=== PATIENT | female | born 1965 | race Caucasian/White ===

== ENCOUNTER 2019-02-03 18:09 | Emergency (ER) | payer OTHER ==
[~2019-02-03] VITALS: Ht 152.4 cm; Wt 79.8 kg
[2019-02-03 18:13] VITALS: BP 141/72
[2019-02-04 00:35] VITALS: BP 132/60
== END 2019-02-04 00:35 | disposition home or self-care (01) ==
LOC: MED 18:09
DX: S69.82XA Other specified injuries of left wrist, hand and finger(s), initial encounter (principal); I10 Essential (primary) hypertension; E03.9 Hypothyroidism, unspecified; Z98.890 Other specified postprocedural states; X50.3XXA Overexertion from repetitive movements, initial encounter; Y93.89 Activity, other specified; Y92.89 Other specified places as the place of occurrence of the external cause; Y99.8 Other external cause status
CPT/HCPCS: 81002; 81025; 99283

== ENCOUNTER 2019-11-04 19:04 | Emergency (ER) | payer OTHER ==
[~2019-11-04] VITALS: Ht 149.9 cm; Wt 72.6 kg
[2019-11-04 19:06] VITALS: BP 143/90
[2019-11-04 20:17] LABS: BASOPHILS # (AUTO) 0.1 K/uL (0.00-0.22); BASOPHILS % (AUTO) 0.9 % (0.0-2.0); EOSINOPHILS % (AUTO) 0.5 % (0.0-4.0); HEMATOCRIT 41.5 % (36-48); HEMOGLOBIN 13.5 g/dL (12.0-16.0); LYMPHOCYTES # (AUTO) 2.6 K/uL (2.5-16.5); LYMPHOCYTES % (AUTO) 40.7 % (20.5-51.1); MEAN CORPUSCULAR HEMOGLOBIN 28 pg (27-31); MEAN CORPUSCULAR HGB CONC 32 g/dL (33-37); MEAN CORPUSCULAR VOLUME 85.1 fL (80-94); MONOCYTES # (AUTO) 0.5 K/uL (0.8-1.0); MONOCYTES % (AUTO) 7.6 % (1.7-9.3); NEUTROPHILS # (AUTO) 3.2 K/uL (1.8-7.7); NEUTROPHILS % (AUTO) 50.3 % (42.2-75.2); PLATELET COUNT (AUTO) 102 K/uL (140-450); RED BLOOD CELL COUNT(AUTO) 4.88 MIL/uL (4.20-5.40); RED CELL DISTRIBUTION WIDTH 14.3 % (11.6-13.7); WHITE BLOOD COUNT (AUTO) 6.3 K/uL (4.8-10.8)
[2019-11-04 20:45] LABS: ALBUMIN 3.9 g/dL (3.4-5.0); ANION GAP 9.1 (8-16); CARBON DIOXIDE 34.2 mmol/L (21-32); CREATININE 1.1 mg/dL (0.6-1.3); FREE T4 (FREE THYROXINE) 1.11 ng/dL (0.76-1.46); POTASSIUM 4.3 mmol/L (3.5-5.1); THYROID STIMULATING HORMONE 3.81 uIU/mL (0.34-3.74); TOTAL BILIRUBIN 0.3 mg/dL (0.0-1.0)
[2019-11-04] MEDS ORDERED: ALUMINUM HYD/MAG/SIMETHICONE 30 ML UDC PO ONE (20:45)
[2019-11-04] MEDS ORDERED: LIDOCAINE VISCOUS 2% 20 ML UDC PO ONE (20:45)
[2019-11-04] MEDS ORDERED: DICYCLOMINE HCL LIQUID 10 MG/5 ML UDC PO ONE (20:45)
[2019-11-04] MEDS ORDERED: PANTOPRAZOLE 40 MG INJ VIAL IVP ONE (20:45)
[2019-11-04] MEDS ORDERED: NACL 0.9% 500 ML IV ONE (20:45)
[2019-11-04] MEDS ORDERED: KETOROLAC 30 MG/ML VIAL IVP ONE (20:50)
[2019-11-04 23:16] VITALS: BP 143/90
== END 2019-11-04 23:19 | disposition home or self-care (01) ==
LOC: MED 19:04
DX: R07.89 Other chest pain (principal); I10 Essential (primary) hypertension; E03.9 Hypothyroidism, unspecified
CPT/HCPCS: 36415; 71045; 80053; 84439; 84443; 84484; 85025; 85610; 85730; 96374; 96375; 99285; C9113; J1885; J7030

== ENCOUNTER 2020-02-08 19:30 | Emergency (ER) | payer OTHER ==
[~2020-02-08] VITALS: Ht 149.9 cm; Wt 73.5 kg
[2020-02-08 19:41] VITALS: BP 147/84
--- NOTE | 2020-02-08 19:50 | NUR ---
PT AMBULATORY TO ROOM 4
--- NOTE | 2020-02-08 20:05 | NUR ---
LAB AT BEDSIDE.
--- NOTE | 2020-02-08 20:06 | NUR ---
54 YO F BIB SELF FOR C/C OF ABNOMAL EKG AT [facility] TODAY. PER PT SHE HAS BEEN EXPERIENCING CHEST PAIN INTERMITTENTLY FOR 2 MONTHS THAT SOMETIMES RADIATES TO LEFT JAW AND LEFT ARM. PT STATES SHE HAS ALSO BEEN EXPERIENCING PALPITATIONS THAT HAVE BEEN TREATED WITH ADDING RX OF HTN MEDS TO HER REGIMEN. PER PT SHE HAS BEEN TOLD HER CP WAS ANXIETY RELATED IN PAST VISITS. PT DENIES BEING IN ANY PAIN AT THIS TIME. S1S2 HEARD. LUNG SOUNDS CLEAR THROUGHOUT. PERIPHERAL PULSES EQUAL AND REG, NO EDEMA NOTED. CAP REFILL <3. 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 BED LOCKED AND IN LOWEST POSITION. [facility] MED HX: HTN, HYPOTHYROID RX: METOPROLOL, LISINOPRIL, LEVOTHYROXINE
[2020-02-08 21:03] LABS: ALBUMIN 3.8 g/dL (3.4-5.0); CARBON DIOXIDE 33.1 mmol/L (21-32); CREATININE 1.1 mg/dL (0.6-1.3); POTASSIUM 4.1 mmol/L (3.5-5.1); TOTAL BILIRUBIN 0.2 mg/dL (0.0-1.0)
--- NOTE | 2020-02-08 21:13 | NUR ---
Dr. Durham examining patient.
[2020-02-08 21:15] LABS: FREE T4 (FREE THYROXINE) 0.91 ng/dL (0.76-1.46); THYROID STIMULATING HORMONE 5.23 uIU/mL (0.34-3.74)
[2020-02-08 21:26] LABS: BASOPHILS # (AUTO) 0.1 K/uL (0.00-0.22); BASOPHILS % (AUTO) 0.8 % (0.0-2.0); EOSINOPHILS # (AUTO) 0.1 K/uL (0-0.4); EOSINOPHILS % (AUTO) 1.1 % (0.0-4.0); HEMOGLOBIN 12.7 g/dL (12.0-16.0); LYMPHOCYTES # (AUTO) 3.1 K/uL (2.5-16.5); LYMPHOCYTES % (AUTO) 45.5 % (20.5-51.1); MEAN CORPUSCULAR HEMOGLOBIN 28 pg (27-31); MEAN CORPUSCULAR HGB CONC 32 g/dL (33-37); MEAN CORPUSCULAR VOLUME 85.1 fL (80-94); MONOCYTES # (AUTO) 0.5 K/uL (0.8-1.0); MONOCYTES % (AUTO) 7.8 % (1.7-9.3); NEUTROPHILS # (AUTO) 3.1 K/uL (1.8-7.7); NEUTROPHILS % (AUTO) 44.8 % (42.2-75.2); PLATELET COUNT (AUTO) 82 K/uL (140-450); RED BLOOD CELL COUNT(AUTO) 4.59 MIL/uL (4.20-5.40); RED CELL DISTRIBUTION WIDTH 14.7 % (11.6-13.7); WHITE BLOOD COUNT (AUTO) 6.8 K/uL (4.8-10.8)
[2020-02-08 21:57] VITALS: BP 140/60
--- NOTE | 2020-02-08 21:57 | NUR ---
Patient discharged with v/s stable. Written and verbal after care instructions given and explained. Patient verbalized understanding. Ambulatory with steady gait. All questions addressed prior to discharge. Advised to follow up with PMD.
== END 2020-02-08 21:57 | disposition home or self-care (01) ==
LOC: MED 19:30
DX: R00.2 Palpitations (principal); E11.9 Type 2 diabetes mellitus without complications; E03.9 Hypothyroidism, unspecified; I10 Essential (primary) hypertension
CPT/HCPCS: 36415; 71045; 80053; 83690; 83880; 84439; 84443; 84484; 85025; 93005; 99285

== ENCOUNTER 2021-01-25 09:54 | Emergency (ER) | payer MEDICAID, OTHER ==
[~2021-01-25] VITALS: Ht 149.9 cm; Wt 72.6 kg
[2021-01-25 10:00] VITALS: BP 158/93
--- NOTE | 2021-01-25 10:05 | NUR ---
Pt ambulated to ER bed 6 with a steady gait.
--- NOTE | 2021-01-25 10:06 | NUR ---
RN at pt bedside for evaluation.
--- NOTE | 2021-01-25 10:10 | NUR ---
55/F presents to ED with c/o chest pressure. Patient states for two days she has been experiencing intermittent chest pressure radiating down her left arm. Patient denies taking anything at home for pain, denies shortness of breath, fever, abdominal pain, nausea or vomiting. States she has been seen by her primary doctor for similar symptoms in the past. Patient placed in gown on bedside cardiac cath technician, Dr. Hoffmann aware of patient.
--- NOTE | 2021-01-25 10:15 | NUR ---
EMT at bedside for EKG.
[2021-01-25] MEDS ORDERED: IBUP-2213 PO (10:28)
[2021-01-25 10:30] VITALS: BP 158/93
== END 2021-01-25 10:31 | disposition home or self-care (01) ==
LOC: MED 09:54
DX: R07.9 Chest pain, unspecified (principal); I10 Essential (primary) hypertension; E07.9 Disorder of thyroid, unspecified
CPT/HCPCS: 93005; 99283

== ENCOUNTER 2021-08-19 09:40 | Emergency (ER) | payer MEDICAID ==
[~2021-08-19] VITALS: Ht 149.9 cm; Wt 78.9 kg
[~2021-08-19 09:40] MED LIST: IBUP-2213 PO
[2021-08-19 09:56] VITALS: BP 131/60
[2021-08-19] MEDS ORDERED: CEPH-588 PO (13:15)
--- NOTE | 2021-08-19 13:25 | NUR ---
Patient discharged with v/s stable. Written and verbal after care instructions ABOUT URINARY TRACT INFECTION given and explained. Patient alert, oriented and verbalized understanding of instructions. Ambulatory with steady gait. All questions addressed prior to discharge. ID band removed. Patient advised to follow up with PMD. Rx of KEFLEX given. Patient educated on indication of medication including possible reaction and side effects. Opportunity to ask questions provided and answered.
[2021-08-19 13:26] VITALS: BP 136/61
--- NOTE | 2021-08-19 13:26 | NUR ---
NO NURSING INTERVENTIONS PROVIDED
== END 2021-08-19 13:25 | disposition home or self-care (01) ==
LOC: MED 09:40
DX: N39.0 Urinary tract infection, site not specified (principal); I10 Essential (primary) hypertension; E03.9 Hypothyroidism, unspecified; Z79.899 Other long term (current) drug therapy; Z98.890 Other specified postprocedural states
CPT/HCPCS: 76856; 81002; 81025; 99284; Q0092

== ENCOUNTER 2022-01-08 02:55 | Emergency (ER) | payer MEDICAID ==
[~2022-01-08] VITALS: Ht 149.9 cm; Wt 76.7 kg
[~2022-01-08 02:55] MED LIST changes: +CEPH-588 PO
[2022-01-08 03:00] VITALS: BP 142/90
--- NOTE | 2022-01-08 03:03 | NUR ---
to lobby a/w bed ambulatory
[2022-01-08] MEDS ORDERED: DIPH25TA53 PO (03:26)
[2022-01-08] MEDS ORDERED: FAMO-90 PO (03:26)
[2022-01-08] MEDS ORDERED: PRED20TA6 PO (03:26)
--- NOTE | 2022-01-08 04:10 | NUR ---
medicated as per [facility] order , tolerated well.
[2022-01-08] MEDS: diphenhydrAMINE 50 MG CAP PO ONE (04:26)
[2022-01-08] MEDS: predniSONE 20 MG TAB PO ONE (04:28)
[2022-01-08] MEDS: FAMOTIDINE 20 MG TAB PO ONE (04:30)
[2022-01-08 04:45] VITALS: BP 120/78
== END 2022-01-08 04:45 | disposition home or self-care (01) ==
LOC: MED 02:55
DX: T78.40XA Allergy, unspecified, initial encounter (principal); Y92.89 Other specified places as the place of occurrence of the external cause; I10 Essential (primary) hypertension; E03.9 Hypothyroidism, unspecified
CPT/HCPCS: 99284; J7512; Q0163

== ENCOUNTER 2022-01-20 22:11 | Emergency (ER) | payer MEDICAID ==
[~2022-01-20 22:11] MED LIST changes: +DIPH25TA53 PO; +FAMO-90 PO; +PRED20TA6 PO
--- NOTE | 2022-01-20 22:45 | NUR ---
PATIENT CALL FOR TRIAGE NO RESPONSE PATIENT LEFT WITHOUT BEING SEEN BY DR. GALDAMEZ. NO FURTHER CARE PROVIDED FOR PATIENT.
--- NOTE | 2022-01-20 22:50 | NUR ---
CALLED FOR SECOND TIME , NO RESPONSE
--- NOTE | 2022-01-20 23:00 | NUR ---
CALLED FOR THE THIRD TIME, NO RESPONSE
== END 2022-01-20 22:45 | disposition left against medical advice (07) ==
LOC: MED 22:11
DX: R06.02 Shortness of breath (principal); Z53.21 Procedure and treatment not carried out due to patient leaving prior to being seen by health care provider

== ENCOUNTER 2023-01-29 19:25 | Emergency (ER) | payer MEDICAID ==
[~2023-01-29] VITALS: Ht 149.9 cm; Wt 80.7 kg
[2023-01-29 19:37] VITALS: BP 167/72; PULSE 66; RESP 16; TEMP 97.7; O2SAT 97
--- NOTE | 2023-01-29 19:40 | NUR ---
TO LOBBY A/W BED AMBULATORY
--- NOTE | 2023-01-29 20:06 | NUR ---
Dr. Shields examining patient.
[2023-01-29] MEDS ORDERED: CYCL-711 PO (20:18)
[2023-01-29] MEDS ORDERED: ACET-10509 PO (20:18)
[2023-01-29 20:25] VITALS: BP 167/72; PULSE 66; RESP 16; TEMP 97.7; O2SAT 97
--- NOTE | 2023-01-29 20:25 | NUR ---
Patient discharged with v/s stable. Written and verbal after care instructions given and explained. Patient alert, oriented and verbalized understanding of instructions. Ambulatory with steady gait. All questions addressed prior to discharge. ID band removed. Patient advised to follow up with PMD. Rx of TYLENOL AND FLEXERIL given. Patient educated on indication of medication including possible reaction and side effects. Opportunity to ask questions provided and answered.
== END 2023-01-29 20:25 | disposition home or self-care (01) ==
LOC: MED 19:25
DX: G44.209 Tension-type headache, unspecified, not intractable (principal); M25.562 Pain in left knee; I10 Essential (primary) hypertension; E11.9 Type 2 diabetes mellitus without complications; E03.9 Hypothyroidism, unspecified; E78.00 Pure hypercholesterolemia, unspecified; Z98.890 Other specified postprocedural states; Z79.899 Other long term (current) drug therapy; Z79.2 Long term (current) use of antibiotics; Z79.1 Long term (current) use of non-steroidal anti-inflammatories (NSAID)
CPT/HCPCS: 99283

== ENCOUNTER 2023-06-05 18:29 | Emergency (ER) | payer MEDICAID ==
[~2023-06-05] VITALS: Ht 162.6 cm; Wt 72.6 kg
[~2023-06-05 18:29] MED LIST changes: +ACET-10509 PO; +CYCL-711 PO
[2023-06-05 18:43] VITALS: BP 158/92; PULSE 71; RESP 18; TEMP 98; O2SAT 98
[2023-06-05] MEDS ORDERED: ATA25 PO (19:19)
== END 2023-06-05 19:30 | disposition home or self-care (01) ==
LOC: MED 18:29
DX: I10 Essential (primary) hypertension (principal); E03.9 Hypothyroidism, unspecified; F41.9 Anxiety disorder, unspecified; Z79.899 Other long term (current) drug therapy
CPT/HCPCS: 93005; 99283

== ENCOUNTER 2023-06-08 18:23 | Emergency (ER) | payer MEDICAID ==
[~2023-06-08] VITALS: Ht 180.3 cm; Wt 78.9 kg
[~2023-06-08 18:23] MED LIST changes: +ATA25 PO
[2023-06-08 19:21] VITALS: BP 153/91; PULSE 71; RESP 20; TEMP 98; O2SAT 98
[2023-06-08 20:58] VITALS: BP 153/91; PULSE 71; RESP 20; TEMP 98
[2023-06-08 20:59] VITALS: O2SAT 98
[2023-06-08 21:26] LABS: APPEARANCE,URINE CLEAR (CLEAR); BILIRUBIN,URINE NEGATIVE (NEGATIVE); BLOOD, URINE TRACE-I (NEGATIVE); COLOR,URINE YELLOW (YELLOW); LEUKOCYTE ESTERASE ,URINE NEGATIVE (NEGATIVE); NITRITE, URINE NEGATIVE (NEGATIVE); PH,URINE 6.5 (5.0-9.0); PROTEIN,URINE NEGATIVE (NEGATIVE); UGLUCOSE NEGATIVE (NEGATIVE); UROBILINOGEN,URINE 0.2 EU/dL (0.2 - 1)
[2023-06-08 21:27] LABS: BASOPHILS # (AUTO) 0.1 K/uL (0.00-0.22); EOSINOPHILS # (AUTO) 0.1 K/uL (0-0.4); EOSINOPHILS % (AUTO) 2.1 % (0.0-4.0); HEMATOCRIT 39.1 % (36-48); HEMOGLOBIN 12.9 g/dL (12.0-16.0); LYMPHOCYTES # (AUTO) 3.4 K/uL (2.5-16.5); LYMPHOCYTES % (AUTO) 48.8 % (20.5-51.1); MEAN CORPUSCULAR HEMOGLOBIN 27 pg (27-31); MEAN CORPUSCULAR HGB CONC 33 g/dL (33-37); MEAN CORPUSCULAR VOLUME 82.9 fL (80-94); MONOCYTES # (AUTO) 0.6 K/uL (0.8-1.0); MONOCYTES % (AUTO) 8.4 % (1.7-9.3); NEUTROPHILS # (AUTO) 2.8 K/uL (1.8-7.7); NEUTROPHILS % (AUTO) 39.7 % (42.2-75.2); PLATELET COUNT (AUTO) 118 K/uL (140-450); RED BLOOD CELL COUNT(AUTO) 4.71 MIL/uL (4.20-5.40)
[2023-06-08 21:36] LABS: BACTERIA,URINE FEW /HPF (None Seen); RBC,URINE 0-5 /HPF (0-5); SQUAMOUS EPITHELIAL CELL,UR 0-3 (FEW) /LPF (0-3 (FEW)); WBC,URINE 0-5 /HPF (0-5)
[2023-06-08 21:38] LABS: CALCIUM 9.3 mg/dL (8.5-10.1); CARBON DIOXIDE 32.6 mmol/L (21-32); CREATININE 0.9 mg/dL (0.6-1.3); POTASSIUM 4.6 mmol/L (3.5-5.1)
[2023-06-08] MEDS ORDERED: ACETAMINOPHEN EXTRA STRENGTH 500 MG TAB PO ONE (21:50)
[2023-06-08] MEDS ORDERED: LOSARTAN 25 MG TAB PO SCH (21:50)
[2023-06-08] MEDS ORDERED: ONDA-188 PO (21:51)
[2023-06-08] MEDS ORDERED: ACET-10509 PO (21:51)
== END 2023-06-08 22:14 | disposition home or self-care (01) ==
LOC: MED 18:23
DX: I10 Essential (primary) hypertension (principal); F41.9 Anxiety disorder, unspecified; R00.2 Palpitations; E11.9 Type 2 diabetes mellitus without complications; E03.9 Hypothyroidism, unspecified; Z79.899 Other long term (current) drug therapy; Z79.1 Long term (current) use of non-steroidal anti-inflammatories (NSAID); Z79.2 Long term (current) use of antibiotics
CPT/HCPCS: 36415; 71045; 80048; 81001; 83880; 84484; 85025; 93005; 99285

== ENCOUNTER 2024-01-12 16:33 | Emergency (ER) | payer MEDICAID, OTHER ==
[~2024-01-12] VITALS: Ht 149.9 cm; Wt 77.1 kg
[~2024-01-12 16:33] MED LIST changes: +ONDA-188 PO
[2024-01-12 16:51] VITALS: BP 146/65; PULSE 67; RESP 18; TEMP 98.8; O2SAT 97
[2024-01-12 17:38] LABS: BASOPHILS # (AUTO) 0.1 K/uL (0.00-0.22); BASOPHILS % (AUTO) 0.8 % (0.0-2.0); EOSINOPHILS # (AUTO) 0.1 K/uL (0-0.4); EOSINOPHILS % (AUTO) 1.1 % (0.0-4.0); HEMATOCRIT 39.7 % (36-48); LYMPHOCYTES # (AUTO) 2.9 K/uL (2.5-16.5); LYMPHOCYTES % (AUTO) 42.4 % (20.5-51.1); MEAN CORPUSCULAR HEMOGLOBIN 28 pg (27-31); MEAN CORPUSCULAR HGB CONC 33 g/dL (33-37); MEAN CORPUSCULAR VOLUME 84.5 fL (80-94); MONOCYTES # (AUTO) 0.4 K/uL (0.8-1.0); MONOCYTES % (AUTO) 6.7 % (1.7-9.3); NEUTROPHILS # (AUTO) 3.3 K/uL (1.8-7.7); PLATELET COUNT (AUTO) 150 K/uL (140-450); RED CELL DISTRIBUTION WIDTH 14.5 % (11.6-13.7); WHITE BLOOD COUNT (AUTO) 6.7 K/uL (4.8-10.8)
[2024-01-12 17:47] LABS: ANION GAP 11.3 (8-16); CALCIUM 9.1 mg/dL (8.5-10.1); CARBON DIOXIDE 30.8 mmol/L (21-32); POTASSIUM 4.1 mmol/L (3.5-5.1)
[2024-01-12 19:14] VITALS: BP 131/77; PULSE 76; RESP 20; O2SAT 97
== END 2024-01-12 19:14 | disposition home or self-care (01) ==
LOC: MED 16:33
DX: R07.89 Other chest pain (principal); E11.9 Type 2 diabetes mellitus without complications; I10 Essential (primary) hypertension; E03.9 Hypothyroidism, unspecified; Z79.1 Long term (current) use of non-steroidal anti-inflammatories (NSAID); Z79.2 Long term (current) use of antibiotics; Z79.899 Other long term (current) drug therapy
CPT/HCPCS: 36415; 71045; 80048; 81025; 84484; 85025; 93005; 99283; 99284; 99285

== ENCOUNTER 2024-03-08 13:00 | Emergency (ER) | payer OTHER ==
[~2024-03-08] VITALS: Ht 149.9 cm; Wt 77.1 kg
[~2024-03-08 13:00] MED LIST changes: -ACET-10509 PO; +ACET500T99 PO
[2024-03-08 13:06] VITALS: BP 149/64; PULSE 61; RESP 16; TEMP 98; O2SAT 98
--- NOTE | 2024-03-08 14:19 | NUR ---
PA CLAYTON EVALUATING PT
[2024-03-08] MEDS ORDERED: LID5T TP (14:26)
[2024-03-08] MEDS ORDERED: METH-1681 PO (14:26)
--- NOTE | 2024-03-08 14:40 | NUR ---
Patient discharged with v/s stable. Written and verbal after care instructions FOR SHOULDER PAIN given and explained. Patient alert, oriented and verbalized understanding of instructions. Ambulatory with steady gait. All questions addressed prior to discharge. ID band removed. Patient advised to follow up with PMD. Rx of ROBAXIN AND LIDODERM given. Opportunity to ask questions provided and answered.
== END 2024-03-08 14:40 | disposition home or self-care (01) ==
LOC: MED 13:00
DX: S46.912A Strain of unspecified muscle, fascia and tendon at shoulder and upper arm level, left arm, initial encounter (principal); E11.9 Type 2 diabetes mellitus without complications; I10 Essential (primary) hypertension; E03.9 Hypothyroidism, unspecified; Z79.899 Other long term (current) drug therapy; X58.XXXA Exposure to other specified factors, initial encounter; Y92.89 Other specified places as the place of occurrence of the external cause; Y93.89 Activity, other specified; Y99.8 Other external cause status
CPT/HCPCS: 99283